=== PATIENT | female | born 1995 | race Caucasian/White ===

== ENCOUNTER 2016-05-27 06:57 | Inpatient (IN) | payer OTHER ==
[~2016-05-27] VITALS: Ht 160 cm; Wt 77.7 kg
[2016-05-27 09:10] VITALS: Ht 160 cm; Wt 77.7 kg
[2016-05-27 09:11] VITALS: BP 121/78; PULSE 93; RESP 16
[2016-05-27] MEDS ORDERED: LIDOCAINE 1% (MPF) 30 ML INJ INJ PRN (09:30)
[2016-05-27] MEDS ORDERED: IBUPROFEN 600 MG TAB PO PRN (09:30)
[2016-05-27] MEDS ORDERED: MISOPROSTOL 200 MCG TAB PR PRN (09:30)
[2016-05-27] MEDS ORDERED: OXYTOCIN 30 UNITS/LR 500 ML IV PRN (09:30)
[2016-05-27] MEDS ORDERED: METHYLERGONOVINE 0.2 MG INJ IM PRN (09:30)
[2016-05-27] MEDS ORDERED: DINOPROSTONE 10 MG VAG SUPP VAG ONE (09:30)
[2016-05-27] MEDS ORDERED: ACETAMINOPHEN/CODEINE #3 TAB PO PRN (09:30)
[2016-05-27] MEDS ORDERED: CARBOPROST 250 MCG INJ IM PRN (09:30)
[2016-05-27] MEDS ORDERED: OXYTOCIN 30 UNITS/LR 500 ML IV SCH ×2 (09:30→10:30)
[2016-05-27] MEDS: LACTATED RINGER'S 1,000 ML IV SCH ×3 (09:46→22:31)
[2016-05-27 09:52] LABS: BASOPHILS % 0.3 % (0.0-2.0); EOSINOPHILS % 0.1 % (0.0-7.0); HEMATOCRIT 36.7 % (37.0-47.0); HEMOGLOBIN 12.3 g/dl (12.0-16.0); LYMPHOCYTES # 1.7 10^3/ul (0.8-2.9); LYMPHOCYTES % 15.9 % (18.0-55.0); MEAN CORPUSCULAR HGB CONC 33.4 g/dl (32.0-37.0); MEAN CORPUSCULAR VOLUME 83.7 fl (72.0-104.0); MEAN PLATELET VOLUME 9.3 fl (7.4-10.4); MONOCYTE # 0.6 10^3/ul (0.3-0.9); MONOCYTES % 5.2 % (0.0-13.0); NEUTROPHIL # 8.4 10^3/ul (1.6-7.5); NEUTROPHILS % 78.5 % (30.0-74.0); PLATELET COUNT 312 10^3/UL (140-440); RED BLOOD COUNT 4.38 10^6/ul (4.20-5.40); RED CELL DISTRIBUTION WIDTH 14.2 % (11.5-14.5); UNCORRECTED WBC 10.7 10^3/ul (4.8-10.8); WHITE BLOOD COUNT 10.7 10^3/ul (4.8-10.8)
[2016-05-27 09:54] LABS: CONDITION 1
[2016-05-27 10:16] LABS: INR 0.97; PROTIME 12.9 Sec (12.2-14.2)
[2016-05-27 10:17] LABS: PARTIAL THROMBOPLASTIN TIME 23.8 Sec (25.0-35.0)
[2016-05-27] MEDS ORDERED: LACTATED RINGER'S 1,000 ML IV PRN (14:00)
[2016-05-28] MEDS: LACTATED RINGER'S 1,000 ML IV SCH ×2 (02:16→06:04)
[2016-05-28] MEDS ORDERED: FENTAnyl 2MCG/ML-ROPIV 0.2% 100 ML ONE (03:51)
[2016-05-28] MEDS ORDERED: NALOXONE (0.4 MG/ML) INJ IV PRN (04:00)
[2016-05-28] MEDS ORDERED: FENTAnyl 2MCG/ML-ROPIV 0.2% 100 ML BAG EPI SCH (04:00)
[2016-05-28] MEDS ORDERED: EPHEDrine SULFATE 50 MG/5 ML SYG IV PRN (04:00)
[2016-05-28] MEDS ORDERED: ONDANSETRON 4 MG INJ IV PRN ×2 (04:00→09:00)
[2016-05-28] MEDS: OXYTOCIN 30 UNITS/LR 500 ML IV SCH ×2 (08:20→08:29)
[2016-05-28] MEDS: LACTATED RINGER'S 1,000 ML IV* SCH ×2 (08:32→16:32)
--- NOTE | 2016-05-28 08:32 | LDN ---
Date/Time of Note Date/Time of Note DATE: 05/28/16 TIME: 08:27 Delivery Summary Pt pushed under epidural anesthesia to an of a liveborn female with Apgars of 9/9. Easy delivery of the head from CELINE followed by reduction of loose nuchal cord x1, delivery of the anterior shoulder, posterior shoulder and the remainder of the body. The infant was placed on the mother's chest and bulb suctioned. Standard IV Pitocin was administered. Delayed cord clamping was employed. The cord was then doubly clamped and cut by FOB. Cord blood was collected. An intact 3VC spontaneously delivered shortly thereafter. Fundus noted to be firm. Inspection of the vagina and perineum revealed a 2nd degree perineal and L labial laceration, both of which were repaired in the standard fashion using 3-0 Chromic suture. Local anesthesia was also administered 2/2 pt discomfort with repair of the labial laceration. A rectal exam following repair revealed a rectal mucosa which was intact without defects or palpable suture. Mother and recovering well in LDR. Placenta Delivered: Spontaneously Meconium: none Perineum intact?: No Perineal laceration: 2 Anesthesia type: Local Estimated blood loss: 350 Sponge & Needle done & correct: Yes All needle counts correct: Yes Any foreign bodies felt in the: No Problems: Infant Delivery Information Sex Sex: female Apgars 1 Minute: 9 5 Minute: 9 Suctioning Nose & mouth suctioned at kris: No Delee suction performed: No Umbilical Cord Umbilical cord with: 3 Vessels Cord presentations: nuchal cord Nuchal cord present X: 1 Cord Blood was obtained: Yes Mother & Baby Disposition Disposition Mom & Baby to Maternity; Good: Yes Baby to NICU: No ROSA DING MD May 28, 2016 08:32
[2016-05-28] MEDS ORDERED: ACETAMINOPHEN 325 MG TAB PO PRN (09:00)
[2016-05-28] MEDS ORDERED: DIPHENHYDRAMINE 50 MG INJ IV PRN (09:00)
[2016-05-28] MEDS ORDERED: LANOLIN 7 GM TUBE TOP PRN (09:00)
[2016-05-28] MEDS ORDERED: OXYTOCIN 30 UNITS/LR 500 ML IV PRN (09:00)
[2016-05-28] MEDS ORDERED: MISOPROSTOL 200 MCG TAB PR PRN (09:00)
[2016-05-28] MEDS ORDERED: SENNA/DOCUSATE NA (8.6MG/50MG) TAB PO PRN (09:00)
[2016-05-28] MEDS ORDERED: DIBUCAINE 1% 30 GM OINT PR PRN (09:00)
[2016-05-28] MEDS ORDERED: CARBOPROST 250 MCG INJ IM PRN (09:00)
[2016-05-28] MEDS ORDERED: METHYLERGONOVINE 0.2 MG INJ IM PRN (09:00)
[2016-05-28 10:25] VITALS: BP 109/61; PULSE 75; RESP 17
[2016-05-28 10:55] VITALS: BP 107/64; PULSE 87; RESP 17
[2016-05-28] MEDS: IBUPROFEN 600 MG TAB PO SCH ×3 (11:19→18:19)
[2016-05-28] MEDS: BENZOCAINE 20% 56 ML SPRAY TOP PRN (11:20)
--- NOTE | 2016-05-28 13:45 | HP ---
Date/Time of Note Date/Time of Note DATE: 05/28/16 TIME: 13:42 OB - History Hx of Present Free Text/Dictation admitted for electve induction of the labor Last Menstrual Period: Sep 10, 2015 Estimated Due Date: May 28, 2016 : 1 Para: 0 Care: Good Care Ultrasounds: Normal mid trimester US Obstetrical Complications: None Medical Complications: None Past Family/Social History * Past Medical, Surgical, Family and Obstetric Histories reviewed from chart. Blood Type: B+ Rubella: immune RPR/VDRL: Negative GBS Status: Negative HBsAG: Negative OB Admission Exam Vital Signs Vital Signs Vital Signs Date Time Temp Pulse Resp B/P Pulse Ox O2 Delivery O2 Flow Rate FiO2 05/28/16 10:55 98.5 87 17 107/64 Room Air Physical Exam HEENT: WNL Heart: Rhythm Normal Lungs: Clear, Equal Abdomen: WNL Extremities: Normal Reflexes: Normal Cervical Dilatation: 2cm Effacement: 50% Station: -3 Membranes: Intact Heart Rate: 140's Accelerations: Accelerations Present Decelerations: No Decelerations Varibility: Marked Contractions on Admission: 6-10 Minutes Apart Intensity: Mild Last 72 hours Lab Results CBC & BMP 05/27/16 09:35 OB Assessment/Plan Reason for admission: induction of labor Other Assessment: term gestation Induction Method: per Pitocin Protocol MIKHAIL MORALES MD May 28, 2016 13:45
[2016-05-28 16:00] VITALS: BP 113/58; PULSE 83; RESP 17
[2016-05-28 19:50] VITALS: BP 118/67; PULSE 88; RESP 18
[2016-05-29] MEDS: IBUPROFEN 600 MG TAB PO SCH ×5 (00:21→23:42)
[2016-05-29 04:09] VITALS: BP 123/78; PULSE 82; RESP 78
[2016-05-29 06:53] LABS: BASOPHILS % 0.4 % (0.0-2.0); EOSINOPHILS % 0.2 % (0.0-7.0); HEMOGLOBIN 8.5 g/dl (12.0-16.0); LYMPHOCYTES # 2.6 10^3/ul (0.8-2.9); LYMPHOCYTES % 23.6 % (18.0-55.0); MEAN CORPUSCULAR HEMOGLOBIN 28.7 pg (29.0-33.0); MEAN CORPUSCULAR HGB CONC 34.1 g/dl (32.0-37.0); MEAN CORPUSCULAR VOLUME 84.3 fl (72.0-104.0); MEAN PLATELET VOLUME 9.5 fl (7.4-10.4); MONOCYTE # 0.9 10^3/ul (0.3-0.9); MONOCYTES % 7.9 % (0.0-13.0); NEUTROPHIL # 7.3 10^3/ul (1.6-7.5); NEUTROPHILS % 67.9 % (30.0-74.0); PLATELET COUNT 254 10^3/UL (140-440); RED BLOOD COUNT 2.96 10^6/ul (4.20-5.40); RED CELL DISTRIBUTION WIDTH 14.4 % (11.5-14.5); UNCORRECTED WBC 10.8 10^3/ul (4.8-10.8); WHITE BLOOD COUNT 10.8 10^3/ul (4.8-10.8)
[2016-05-29 06:55] LABS: CONDITION 1
[2016-05-29 08:10] VITALS: BP_SYST 120; BP_SYST 129; BP_DIAS 69; BP_DIAS 82; PULSE 97; RESP 16; RESP 18
[2016-05-29 16:00] VITALS: BP 121/70; PULSE 93; RESP 17
--- NOTE | 2016-05-29 19:56 | DS ---
Date/Time of Note Date/Time of Note home next day DATE: 05/29/16 TIME: 19:54 Obstetrical Discharge Record Final Diagnosis Final Diagnosis: Term delivered Other Final Diagnosis S/P vaginal delivery Vaginal Delivery Obstetrical Delivery: Spontaneous, Laceration, Repaired Complications Augmentation: Yes Condition on Discharge Physical Assessment Last Vitals: see nurses notes Voiding: Yes Bowel Movement: Yes Breast: Soft, non-tender, Filling Fundus: Firm Abdomen and Incision: soft bs + Episiotomy: NA perineum : healing Calf Tenderness: No Patient Condition: Good MIKHAIL MORALES MD May 29, 2016 19:56
--- NOTE | 2016-05-29 19:58 | PD.PPDC ---
PENOLOGY TEACHER Discharge Instruction Provider Information Physician Information 20 y/o female had vaginal delivery Diagnosis Final Diagnosis: S/P vaginal delivery Condition Patient Condition: Good Diet Diet: Resume Regular Diet Activity/Restrictions Activity: Normal Activity May Shower Restrictions: Nothing in the Vagina Return to Work or School: Jul 12, 2016 Follow-up Follow-up with Physician: 4, Week/Weeks Provider Information: in clinic Return to clinic for PSYCHIATRIC LPN Instructions: Excessive Vaginal Bleeding OB Instructions: Breast Tenderness Depression MIKHAIL MORALES MD May 29, 2016 19:58
[2016-05-29] MEDS ORDERED: IBUP-1542 PO (19:59)
[2016-05-29 20:10] VITALS: BP 120/69; PULSE 97; RESP 18
[2016-05-30 04:15] VITALS: BP 117/73; PULSE 83; RESP 18
[2016-05-30] MEDS: IBUPROFEN 600 MG TAB PO SCH ×2 (05:37→12:02)
[2016-05-30 07:40] VITALS: BP 124/79; PULSE 85; RESP 16
[2016-05-30] MEDS ORDERED: DIPHTH/TET/ACEL PERTUSS (ADULT) 0.5 ML VIAL IM* ONE (09:00)
[2016-05-30] MEDS: BENZOCAINE 20% 56 ML SPRAY TOP PRN (13:57)
== END 2016-05-30 15:28 | disposition home or self-care (01) | DRG 775 ==
LOC: L-D 08:52 → PP1 05-28 10:05
PROVIDERS: ADMIT Obstetrics & Gynecology; ATTEND Obstetrics & Gynecology
PROC: 10E0XZZ Delivery of Products of Conception, External Approach (ICD-10-PCS; principal; 2016-05-28)
PROC: 0KQM0ZZ Repair Perineum Muscle, Open Approach (ICD-10-PCS; 2016-05-28)
DX: O69.81X0 Labor and delivery complicated by cord around neck, without compression, not applicable or unspecified (principal); O70.1 Second degree perineal laceration during delivery; Z3A.39 39 weeks gestation of pregnancy; Z37.0 Single live birth
CPT/HCPCS: 62319; 85025; 85610; 85730; 86592; 86900; 86901; 87340; 90715; 99464; J2590; J3010; J7120

== ENCOUNTER 2018-09-27 08:49 | Inpatient (IN) | payer MEDICAID ==
[~2018-09-27] VITALS: Ht 157.5 cm; Wt 72.7 kg
[~2018-09-27 08:49] MED LIST: IBUP-1542 PO
[2018-09-27] MEDS ORDERED: LACTATED RINGER'S 1,000 ML IV SCH (08:58)
[2018-09-27] MEDS ORDERED: BUTORPHANOL 2 MG INJ IV PRN (09:00)
[2018-09-27] MEDS ORDERED: OXYTOCIN 30 UNITS/LR 500 ML IV SCH ×2 (09:00)
[2018-09-27] MEDS ORDERED: LIDOCAINE 1% (MPF) 30 ML INJ INJ PRN (09:00)
[2018-09-27] MEDS ORDERED: METHYLERGONOVINE 0.2 MG INJ IM PRN ×2 (09:00→11:00)
[2018-09-27] MEDS ORDERED: MISOPROSTOL 200 MCG TAB PR PRN ×2 (09:00→11:00)
[2018-09-27] MEDS ORDERED: CARBOPROST 250 MCG INJ IM PRN ×2 (09:00→11:00)
[2018-09-27] MEDS ORDERED: IBUPROFEN 600 MG TAB PO PRN (09:00)
[2018-09-27] MEDS ORDERED: OXYTOCIN 30 UNITS/LR 500 ML IV PRN ×2 (09:00→11:00)
[2018-09-27] MEDS ORDERED: AMPICILLIN 2 GM/NS (PMX) 100 ML IV ONE (09:00)
--- NOTE | 2018-09-27 09:04 | TRIAGE ---
OB Triage Datetime Report Generated by CPN: 09/27/2018 09:04 Datetime: 09/27/2018 09:02 Time of Arrival: 09/27/2018 08:45 EGA: 39.1 Chief Complaint: UC'S SINCE 0600 Movement: Present Contractions: Regular Time Contractions Began: 09/27/2018 06:00 Rupture of Membranes: Ruptured Vaginal Bleeding: Normal Show Vaginal Discharge: Present Recent Sexual Intercouse: Denies Abdominal Trauma: Not Applicable Patient Complaints: Contractions; Cramping Time Provider Notified: 09/27/2018 08:50 Provider Notified: DR STERN Initial Plan: NST VE Datetime: 09/06/2018 13:31 EGA: 39.1 Datetime: 09/06/2018 13:26 Time of Arrival: 09/27/2018 08:45 Arrived By: Wheelchair Arrived From: Emergency Dept Chief Complaint: UC'S SINCE 0600 Time Provider Notified: 09/27/2018 08:50 Provider Notified: dr stern Initial Plan: NST VE
[2018-09-27 09:36] VITALS: Ht 157.5 cm; Wt 72.7 kg
[2018-09-27 09:38] VITALS: BP 126/73; PULSE 88; RESP 20
[2018-09-27] MEDS ORDERED: KETOROLAC 30 MG INJ IV STA (09:56)
[2018-09-27] MEDS ORDERED: ACETAMINOPHEN 500 MG TAB PO STA (09:56)
--- NOTE | 2018-09-27 10:06 | HP ---
Date/Time of Note Date/Time of Note DATE: 09/27/18 TIME: 10:00 OB - History Hx of Present Free Text/Dictation 22-year-old female 2 para 1 at 39+ weeks gestation admitted complaining of onset of labor contractions at 6 AM and ruptured membrane at 7 AM Last Menstrual Period: Feb 07, 2018 Estimated Due Date: October 03, 2018 : 2 Para: 1 Care: Good Care Ultrasounds: Normal mid trimester US Obstetrical Complications: None Medical Complications: None Past Family/Social History * Past Medical, Surgical, Family and Obstetric Histories reviewed from chart. Blood Type: B+ Rubella: immune RPR/VDRL: Negative GBS Status: Negative HBsAG: Negative OB Admission Exam Vital Signs Vital Signs Vital Signs Date Temp Pulse Resp B/P (MAP) Pulse Ox O2 O2 Flow FiO2 Time Delivery Rate 09/27/18 98.2 88 20 126/73 Room Air 09:38 (90) Physical Exam HEENT: WNL Heart: Rhythm Normal Lungs: Clear, Equal Abdomen: WNL Extremities: Normal Reflexes: Normal Cervical Dilatation: 10cm Effacement: 100% Station: 0 Membranes: Ruptured Amniotic Fluid: Clear Heart Rate: 140's Accelerations: Accelerations Present Decelerations: No Decelerations Varibility: Marked Contractions on Admission: < 5 Minutes Apart Date/Time Contractions Began: 09/27/2018 0600 AM Frequency of Contractions: Q2-3 Duration: >60 seconds Intensity: Firm Last 72 hours Lab Results CBC & BMP 09/27/18 09:00 OB Assessment/Plan Reason for admission: active labor Other Assessment: Term gestation Active labor with imminent delivery Other plan: Proceed with spontaneous labor and vaginal delivery anticipated MIKHAIL MORALES MD September 27, 2018 10:06
[2018-09-27 10:40] VITALS: BP 121/71; PULSE 73; RESP 18
[2018-09-27] MEDS: LACTATED RINGER'S 1,000 ML IV* SCH (10:44)
[2018-09-27] MEDS ORDERED: HYDROCODONE/APAP (5/325) TAB PO PRN ×2 (11:00)
[2018-09-27] MEDS ORDERED: BENZOCAINE 20% 56 ML SPRAY TOP PRN (11:00)
[2018-09-27] MEDS ORDERED: DIBUCAINE 1% 30 GM OINT TOP PRN (11:00)
[2018-09-27] MEDS ORDERED: LANOLIN HPA 1 PKT TOP PRN (11:00)
[2018-09-27] MEDS ORDERED: ZOLPIDEM 5 MG TAB PO PRN (11:00)
[2018-09-27] MEDS ORDERED: WITCH HAZEL/GLYCERIN PAD PR PRN (11:00)
[2018-09-27] MEDS: IBUPROFEN 600 MG TAB PO SCH ×3 (12:00→23:52)
[2018-09-27] MEDS ORDERED: AMPICILLIN 1 GM/NS (PMX) 50 ML IV SCH (13:00)
[2018-09-27 16:05] VITALS: BP 122/74; PULSE 73; RESP 18
--- NOTE | 2018-09-27 18:01 | LDN ---
Date/Time of Note Date/Time of Note DATE: 09/27/18 TIME: 17:50 Delivery Summary Following is done by Normal spontaneous vaginal delivery of a viable over midline episiotomy Weeks of Gestation 39 Placenta Delivered: Spontaneously, Intact & Complete Episiotomy: Yes Laceration repair: Midline episiotomy was repaired in layers using 2-0 chromic stitch Anesthesia type: Local Estimated blood loss: 200 Sponge & Needle done & correct: Yes All needle counts correct: Yes Infant Delivery Information Sex Sex: female Apgars 1 Minute: 9 5 Minute: 9 Suctioning Nose & mouth suctioned at kris: Yes Delee suction performed: No Umbilical Cord Umbilical cord with: 3 Vessels Cord presentations: no nuchal cord Cord Blood was obtained: Yes Mother & Baby Disposition Disposition Mom & Baby to Maternity; Good: Yes (Mother and baby were recovered in good condition) Mom transferred to: Other (Maternity) Baby to NICU: No MIKHAIL MORALES MD September 27, 2018 18:01
[2018-09-27 20:15] VITALS: BP 112/68; PULSE 80; RESP 18
[2018-09-27] MEDS: MAGNESIUM HYDROXIDE 30ML CUP PO SCH (21:00)
[2018-09-27] MEDS: SENNA/DOCUSATE NA (8.6MG/50MG) TAB PO SCH (23:52)
[2018-09-28] MEDS: LACTATED RINGER'S 1,000 ML IV* SCH (01:10)
[2018-09-28 04:15] VITALS: BP 121/79; PULSE 86; RESP 20
[2018-09-28] MEDS: IBUPROFEN 600 MG TAB PO SCH ×4 (05:54→23:59)
[2018-09-28 08:00] VITALS: BP 113/97; PULSE 72; RESP 18
[2018-09-28] MEDS: SENNA/DOCUSATE NA (8.6MG/50MG) TAB PO SCH ×2 (09:46→21:00)
[2018-09-28] MEDS: MAGNESIUM HYDROXIDE 30ML CUP PO SCH ×2 (09:46→21:00)
--- NOTE | 2018-09-28 14:43 | DS ---
Date/Time of Note Date/Time of Note Home today or next day DATE: 09/28/18 TIME: 14:42 Obstetrical Discharge Record Final Diagnosis Final Diagnosis: Term delivered Other Final Diagnosis Status post vaginal delivery Vaginal Delivery Obstetrical Delivery: Spontaneous, Episiotomy, Repaired Condition on Discharge Physical Assessment Last Vitals: See nurse's notes Voiding: Yes Bowel Movement: Yes Breast: Soft, non-tender, Filling Fundus: Firm Abdomen and Incision: Abdomen is soft with firm fundus Episiotomy: Episiotomy is healing well and appears clean Calf Tenderness: No Patient Condition: Good MIKHAIL MORALES MD September 28, 2018 14:43
--- NOTE | 2018-09-28 14:44 | PD.PPDC ---
WASTE OIL PUMPER Discharge Instruction Provider Information Physician Information 22-year-old female had precipitous delivery Diagnosis [id number] Final Diagnosis: [id number] That is post vaginal delivery Condition [id number] Patient Condition: [id number] Good Diet [id number] Diet: Eobzm2n Resume Regular Diet Activity/Restrictions [id number] Activity: Wauce3y Normal Activity May Shower [id number] Restrictions: [id number] Nothing in the Vagina [id number] Return to Work or School: [id number] Nov 13, 2018 Follow-up Follow-up with Physician: 2, 4, Week/Weeks (In clinic) Return to clinic for [id number] OB Instructions: Kskrc3a Breast Tenderness Depression Comment: Pelvic rest for 6 weeks MIKHAIL MORALES MD September 28, 2018 14:44
[2018-09-28] MEDS ORDERED: IBUP-1542 PO (14:45)
[2018-09-28 16:00] VITALS: BP_SYST 111; PULSE 81; RESP 18
[2018-09-28 20:00] VITALS: BP 102/71; PULSE 80; RESP 18
[2018-09-29 03:57] VITALS: BP 109/62; PULSE 71; RESP 18
[2018-09-29] MEDS: IBUPROFEN 600 MG TAB PO SCH ×2 (05:37→11:29)
[2018-09-29 07:45] VITALS: BP 106/60; PULSE 68; RESP 16
[2018-09-29] MEDS: MAGNESIUM HYDROXIDE 30ML CUP PO SCH (08:29)
[2018-09-29] MEDS: SENNA/DOCUSATE NA (8.6MG/50MG) TAB PO SCH (08:29)
[2018-09-29] MEDS ORDERED: MEASLES,MUMPS,RUBELLA VACCINE INJ SC* ONE (09:00)
[2018-09-29] MEDS ORDERED: DIPHTH/TET/ACEL PERTUSS (ADULT) 0.5 ML VIAL IM* ONE (09:00)
[2018-09-29] MEDS ORDERED: VARICELLA VACCINE LIVE/PF 1,350 UNIT/0.5 ML ML SC* ONE (09:00)
--- NOTE | 2018-09-30 15:04 | DELSUM ---
Delivery Summary A-C Datetime Report Generated by CPN: 09/30/2018 15:04 DELIVERY PERSONNEL Installation Specialist: [employer], [place] MATERNAL INFORMATION Delivery Anesthesia: Local Medications in Delivery: pitocin Delivery QBL (ml): 200 Placenta Cultured: No Maternal Complications: None LABOR SUMMARY EDC: 10/03/2018 00:00 No. Babies in Womb: 1 Attempted: No Labor Anesthesia: None LABOR INFORMATION Reason for Induction: Not Applicable Onset of Labor: 09/27/2018 06:00 Complete Dilatation: 09/27/2018 08:50 Oxytocin: N/A Group B Beta Strep: Negative Antibiotics # of Doses: 0 Steroids Given: None Reason Steroids Not Administered: Not Applicable MEMBRANES Membranes Rupture Method: Spontaneous Rupture of Membranes: 09/27/2018 07:00 Length of Rupture (hr): 2.07 Amniotic Fluid Color: Clear Amniotic Fluid Amount: Moderate Amniotic Fluid Odor: None STAGES OF LABOR Stage 1 hr: 2 Stage 1 min: 50 Stage 2 hr: 0 Stage 2 min: 14 Stage 3 hr: 0 Stage 3 min: 3 Total Time in Labor hr: 3 Total Time in Labor min: 7 VAGINAL DELIVERY Episiotomy: Median Laceration Extension: N/A Laceration Type: None Laceration Repair: Yes Initial Vag Sponge Count: 10 Final Vag Sponge Count: 10 Initial Vag Sharps Count: 2 Final Vag Sharps Count: 2 Sponge Count Correct: Vaginal Sweep Performed Sharps Count Correct: Yes BABY A INFORMATION Infant Delivery Date/Time: 09/27/2018 09:04 Method of Delivery: Vaginal Born in Route : No : N/A Forceps: N/A Vacuum Extraction: N/A Shoulder Dystocia : No SHOULDER DYSTOCIA BABY A Delivery Date/Time: 09/27/2018 09:04 PRESENTATION/POSITION BABY A Presentation: Cephalic Cephalic Presentation: Vertex Vertex Position: Left Occipital Anterior Breech Presentation: N/A PLACENTA INFORMATION BABY A Placenta Delivery Time : 09/27/2018 09:07 Placenta Method of Delivery: Spontaneous Placenta Status: Delivered SCORES BABY A Heart Rate 1 min: >100 bpm Resp Effort 1 min: Good Cry Reflex Irritability 1 min: Cough/Sneeze/Pulls Away Muscle Tone 1 min: Active Motion Color 1 min: Body [place], Extremit Blue Resuscitation Effort 1 min: Tactile Stimulation SCORE 1 MIN: 9 Heart Rate 5 min: >100 bpm Resp Effort 5 min: Good Cry Reflex Irritability 5 min: Cough/Sneeze/Pulls Away Muscle Tone 5 min: Active Motion Color 5 min: Body [place], Extremit Blue Resuscitation Effort 5 min: Tactile Stimulation SCORE 5 MIN: 9 INFANT INFORMATION BABY A Gestational Age at Delivery: 39.1 Gestational Status: Full Term- 39- 40.6 Weeks Infant Outcome : Liveborn Infant Condition : Stable Infant Sex: Female IDENTIFICATION/MEDS BABY A ID Band Number: [id number] ID Band Location: Right Leg; Right Arm Sensor Applied: Yes Sensor Number: [id number] Sensor Location : Cord Clamp Vitamin K Given : Not Given Erythromycin Given: Not Given WEIGHT/LENGTH BABY A Birthweight (gm): 3085 Weight (lb): 6 Infant Weight (oz): 13 Infant Length (in): 18.50 Infant Length (cm): 46.99 CORD INFORMATION BABY A No. Cord Vessels: 3 Nuchal Cord : N/A Cord Blood Taken: Yes Suction: Mouth; Nose ASSESSMENT BABY A Infant Complications: None Physical Findings at Delivery: Within Normal Limits Infant Respirations: Appears Normal Sane Rn/ALS Called : No Infant Care By: Heather harris Transferred To: Remains with Mother
== END 2018-09-29 14:10 | disposition home or self-care (01) | DRG 807 ==
LOC: OBT 08:49 → L-D 08:51 → OBT 08:52 → L-D 08:53 → PP1 10:40
PROVIDERS: ADMIT Obstetrics & Gynecology; ATTEND Obstetrics & Gynecology
PROC: 10E0XZZ Delivery of Products of Conception, External Approach (ICD-10-PCS; principal; 2018-09-27)
PROC: 0W8NXZZ Division of Female Perineum, External Approach (ICD-10-PCS; 2018-09-27)
DX: O80 Encounter for full-term uncomplicated delivery (principal); Z37.0 Single live birth; Z3A.39 39 weeks gestation of pregnancy
CPT/HCPCS: 85025; 85610; 85730; 86592; 86850; 86900; 86901; 87340; 90716; G0463; J2210; J2590; J7120